=== PATIENT | male | born 1990 | race Two or more races ===

== ENCOUNTER 2019-07-04 22:46 | Emergency (ER) | payer OTHER ==
[~2019-07-04] VITALS: Ht 167.6 cm; Wt 77.1 kg
[2019-07-04 22:55] VITALS: BP 138/71
--- NOTE | 2019-07-04 22:55 | NUR ---
PT AAOX4. BIB [employer] AND [facility] FOR OTB. PT C/O L HAND INDEX AND PALM LACERATION RUNNING AWAY FROM [employer]. PT PLACED IN BED 12. VSS. WILL CONTINUE TO MONITOR. AWAITING MD FOR EVAL.
--- NOTE | 2019-07-04 22:58 | NUR ---
DR THOMAS AT BEDSIDE
--- NOTE | 2019-07-04 23:14 | NUR ---
EMT AT BEDSIDE FOR WOUND CARE.
--- NOTE | 2019-07-04 23:43 | NUR ---
AT BEDSIDE FOR SUTURE
--- NOTE | 2019-07-04 23:56 | NUR ---
EMT AT BEDSIDE FOR WOUND CARE AND WRAP
--- NOTE | 2019-07-05 00:04 | NUR ---
Patient discharged to [facility] in stable condition. Written and verbal after care instructions given. Patient verbalizes understanding of instruction. ambulatory with a steady gait
== END 2019-07-05 00:06 | disposition home or self-care (01) ==
LOC: ER 22:49
DX: S61.211A Laceration without foreign body of left index finger without damage to nail, initial encounter (principal); W22.8XXA Striking against or struck by other objects, initial encounter; Y93.89 Activity, other specified; Y92.89 Other specified places as the place of occurrence of the external cause; Y99.8 Other external cause status
CPT/HCPCS: 12001; 73130; 99283; A4217; A6403